=== PATIENT | female | born 1950 | race Caucasian/White ===

== ENCOUNTER 2018-08-02 12:37 | Outpatient (CLI) | payer MEDICARE, BC ==
--- NOTE | 2018-08-02 16:40 | Ultrasound Report ---
Reason: POST MENOPAUSAL VB Procedure Date: 08/02/2018 Accession Number: [id number] / [id number] Procedure: US - Pelvic w/Transvaginal CPT Code: FULL RESULT: EXAM: PELVIC ULTRASOUND EXAM DATE: 08/02/2018 01:58 PM. CLINICAL HISTORY: Postmenopausal vaginal bleeding. Post hormone therapy. COMPARISON: None. TECHNIQUE: Realtime transabdominal pelvic scan performed to identify the uterus and adnexa and as an overview of other pelvic structures, followed by transvaginal scan to provide greater detail of the uterus and adnexa, with static image documentation. FINDINGS: Uterus: 9.1 x 5.1 x 4.1 cm, volume 99 cc. Anteverted position. Normal overall size and echotexture. Masses: None. Endometrium: 7.2 mm. The endometrium is abnormally thickened and echogenic, not compatible with normal postmenopausal state. Cervix: Nabothian cysts. Right Ovary: 2.5 x 1.6 x 2.1 cm, volume 6.1 cc. Normal echotexture and blood flow. Left Ovary: 2.1 x 0.9 x 1.5 cm, volume 2.8 cc. Normal echotexture and blood flow. Free Fluid: None. Other: None. IMPRESSION: Abnormally thick endometrium. RADIA
== END 2018-08-02 12:38 | disposition home or self-care (01) ==
LOC: EDSEX → DI 12:37
PROVIDERS: ATTEND Family Medicine
DX: R93.89 Abnormal findings on diagnostic imaging of other specified body structures (principal); N95.0 Postmenopausal bleeding
CPT/HCPCS: 76830; 76856

== ENCOUNTER 2019-01-17 07:05 | Outpatient (CLI) | payer MEDICARE, OTHER ==
[2019-01-17 10:52] LABS: FREE T3 3.13 pg/mL (2.5-3.9)
[2019-01-17 10:53] LABS: THYROID STIMULATING HORMONE 0.18 uIU/mL (0.34-5.60)
[2019-01-17 10:55] LABS: FREE T4 (FREE THYROXINE) 0.9 ng/dL (0.58-1.64)
[2019-01-17 11:00] LABS: TOTAL T3 0.58 ng/mL (0.87-1.78)
[2019-01-18 07:05] LABS: PROGESTERONE 11.6 ng/mL
== END 2019-01-17 07:06 | disposition home or self-care (01) ==
LOC: LAB.F 07:05
PROVIDERS: ATTEND Family Medicine
DX: N95.1 Menopausal and female climacteric states (principal); R94.6 Abnormal results of thyroid function studies; Z79.890 Hormone replacement therapy; E55.9 Vitamin D deficiency, unspecified
CPT/HCPCS: 36415; 82306; 82626; 82627; 82670; 84144; 84403; 84439; 84443; 84480; 84481; 84482

== ENCOUNTER 2019-04-16 07:42 | Outpatient (CLI) | payer MEDICARE, OTHER ==
[2019-04-16 11:45] LABS: BASOPHILS % (AUTO) 0.7 %; EOSINOPHILS # (AUTO) 0.2 10^3/uL (0.0-0.7); EOSINOPHILS % (AUTO) 4.2 %; HGB - HEMOGLOBIN 14.6 g/dL (12.0-16.0); LYMPHOCYTES # (AUTO) 1.2 10^3/uL (1.5-3.5); LYMPHOCYTES % (AUTO) 28.4 %; MEAN CORPUSCULAR HEMOGLOBIN 32.4 pg (27.0-31.0); MEAN CORPUSCULAR HGB CONC 33.7 g/dL (32.0-36.0); MEAN CORPUSCULAR VOLUME 96.2 fL (81.0-99.0); MEAN PLATELET VOLUME 9.5 fL (7.9-10.8); MONOCYTES # (AUTO) 0.5 10^3/uL (0.0-1.0); MONOCYTES % (AUTO) 10.5 %; NEUTROPHILS # (AUTO) 2.4 10^3/uL (1.5-6.6); NEUTROPHILS % (AUTO) 55.7 %; PLT - PLATELET COUNT 238 10^3/uL (130-450); RED CELL DISTRIBUTION WIDTH 13.7 % (12.0-15.0); WHITE BLOOD COUNT 4.3 x10^3/uL (4.8-10.8)
[2019-04-16 11:57] LABS: ALBUMIN/GLOBULIN RATIO 1.6 (1.0-2.2); BILIRUBIN,TOTAL 2.5 mg/dL (0.2-1.0); CALCIUM 9.1 mg/dL (8.5-10.3); CREATININE 0.5 mg/dL (0.4-1.0); TOTAL PROTEIN 6.5 g/dL (6.7-8.2)
[2019-04-16 12:09] LABS: THYROID STIMULATING HORMONE 0.42 uIU/mL (0.34-5.60)
[2019-04-16 12:11] LABS: FREE T4 (FREE THYROXINE) 0.87 ng/dL (0.58-1.64)
[2019-04-16 12:16] LABS: TOTAL T3 0.78 ng/mL (0.87-1.78)
[2019-04-16 12:43] LABS: HEMOGLOBIN A1C 0.5 g/dL; HEMOGLOBIN A1C % 5.2 % (4.6-6.2)
== END 2019-04-16 07:43 | disposition home or self-care (01) ==
LOC: LAB.S 07:42
PROVIDERS: ATTEND Family Medicine
DX: Z00.00 Encounter for general adult medical examination without abnormal findings (principal); R73.09 Other abnormal glucose; R53.83 Other fatigue
CPT/HCPCS: 36415; 80053; 80061; 82626; 82728; 83036; 83721; 84439; 84443; 84480; 84481; 85025

== ENCOUNTER 2019-05-22 15:29 | Outpatient (CLI) | payer MEDICARE, OTHER ==
--- NOTE | 2019-05-24 16:09 | DEXA Report ---
Reason: POST MENOPAUSAL, HX OF OSTEOPENIA Procedure Date: 05/22/2019 Accession Number: [id number] / [id number] Procedure: DEX - Dexa Spine and/or Hip CPT Code: Final Report FULL RESULT: EXAM: Dexa Spine and/or Hip DATE: 05/22/2019 3:15 PM CLINICAL HISTORY: POST MENOPAUSAL, HX OF OSTEOPENIA TECHNIQUE: Dual energy x-ray absorptiometry (DXA) was performed on a [employer]. Regions measured are the AP Spine, femoral neck, and if needed forearm. COMPARISON: None. In accordance with the International Society for Clinical Densitometry (ISCD) guidelines, data from previous exams may be reanalyzed using current recommendations and techniques. This is done to allow a more accurate basis for comparison with the current study. FINDINGS: The data for the lumbar spine is as follows: BMD (g/cm/cm) T-SCORE Z-SCORE REGION L1 1.034 -0.8 0.9 L2 1.088 -0.9 0.7 L3 1.133 -0.6 1.1 L4 1.240 0.3 2.0 TOTAL 1.128 -0.4 1.3 NOTE: All evaluable vertebrae are used for classification The data for the hip is as follows: BMD (g/cm/cm) T-SCORE Z-SCORE REGION Neck 0.692 -2.5 -0.8 TOTAL 0.704 -2.4 -0.9 NOTE: The femoral neck or total proximal femur, whichever is lowest, is used for classification. IMPRESSION: THE WHO CLASSIFICATION BASED ON THE INTERNATIONAL REFERENCE STANDARD IS OSTEOPOROSIS, REFERENCE LEFT FEMORAL NECK. THE FRACTURE RISK IS HIGH. RECOMMENDATION: Patients with diagnosis of osteoporosis or osteopenia should have regular bone mineral density assessment. For those eligible for Medicare, routine testing is allowed once every 2 years. Testing frequency can be increased for patients who have rapidly progressing disease or for those who are receiving medical therapy to restore bone mass. COMMENT: World Health Organization (WHO) definitions for osteoporosis and osteopenia: NORMAL BMD: T-score at -1.0 or higher, fracture risk is low OSTEOPENIA BMD: T-score between -1.0 and -2.5, fracture risk is increased. OSTEOPOROSIS BMD: T-score at -2.5 or lower, fracture risk is high. National Osteoporosis Foundation recommends: 1. Obtain adequate dietary calcium (at least 1200 mg per day) and vitamin D (400-800 international units per day). 2. Participate, as appropriate, in regular weightbearing and muscle-strengthening exercise. 3. Avoid tobacco use and reduce alcohol and caffeine intake. 4. For more detailed information see the website at www.NOF.org.
== END 2019-05-22 15:30 | disposition home or self-care (01) ==
LOC: DI 15:29
PROVIDERS: ATTEND Family Medicine
DX: M81.0 Age-related osteoporosis without current pathological fracture (principal)
CPT/HCPCS: 77080

== ENCOUNTER 2019-05-22 15:41 | Outpatient (CLI) | payer MEDICARE, OTHER ==
--- NOTE | 2019-05-31 08:24 | Mammography Report ---
Reason: SCREENING MAMMO Procedure Date: 05/22/2019 Accession Number: [id number] / [id number] Procedure: ALEJANDRO - Screening Mammo w/Prakash CPT Code: Final Report FULL RESULT: EXAM: Screening Mammo w/Prakash DATE: 05/22/2019 4:04 PM CLINICAL HISTORY: Screening encounter. Family history of breast cancer in a sister at the age of 68. History of prior breast augmentation. TECHNIQUE: (B) - Bilateral CC, laterally exaggerated CC, MLO views were obtained. COMPARISON: None PARENCHYMAL PATTERN: (D) - The breast(s) demonstrate(s) heterogeneously dense fibroglandular parenchyma. FINDINGS: Postsurgical changes most consistent with prior breast augmentation and subsequent reversal are noted. Rim-like hyperdensity presumably calcifications outlining the previous implant site seen on the right MLO view is not well visualized, possible prior implant loss of integrity. No definite separate hyperdensities or hyperdense lymph nodes to suggest separate silicone granulomata. There are no suspicious masses, calcifications, or areas of distortion. IMPRESSION: Benign findings. BI-RADS category 2. RECOMMENDATION: (ANNUAL) - Recommend routine annual screening mammography. BI-RADS CATEGORY: (2) - Benign Findings. STANDARD QUALIFYING STATEMENTS: 1. This examination was not reviewed with the aid of Computer-Aided Detection (CAD). 2. A negative or benign imaging report should not preclude biopsy if clinically suspicious findings are present. 3. Dense breasts may obscure an underlying neoplasm. 4. This examination was reviewed with the aid of 3D breast imaging (tomosynthesis).
== END 2019-05-22 15:42 | disposition home or self-care (01) ==
LOC: DI 15:41
PROVIDERS: ATTEND Family Medicine
DX: Z12.31 Encounter for screening mammogram for malignant neoplasm of breast (principal); Z80.3 Family history of malignant neoplasm of breast
CPT/HCPCS: 77063; 77067

== ENCOUNTER 2019-06-05 07:59 | Day surgery (SDC) | payer MEDICARE, OTHER ==
[2019-06-05] MEDS ORDERED: fentaNYL 250 MCG/5 ML VIAL IVP ONE (08:00)
[2019-06-05] MEDS ORDERED: MIDAZOLAM 2 MG/2 ML VIAL IVP ONE (08:00)
[2019-06-05] MEDS ORDERED: LACTATED RINGERS 1,000 ML IV ONE (08:13)
[2019-06-05 11:41] VITALS: BP 97/59
== END 2019-06-05 08:00 | disposition home or self-care (01) ==
LOC: SDS 07:59
PROVIDERS: ATTEND Surgery
PROC: 0DJD8ZZ Inspection of Lower Intestinal Tract, Via Natural or Artificial Opening Endoscopic (ICD-10-PCS; principal; 2019-06-05 09:30)
DX: Z12.11 Encounter for screening for malignant neoplasm of colon (principal); Z86.010 Personal history of colon polyps; K57.30 Diverticulosis of large intestine without perforation or abscess without bleeding; E03.9 Hypothyroidism, unspecified
CPT/HCPCS: G0105; J3010; J7120

== ENCOUNTER 2019-07-09 07:39 | Outpatient (CLI) | payer MEDICARE, OTHER ==
[2019-07-09 10:45] LABS: THYROID STIMULATING HORMONE 0.61 uIU/mL (0.34-5.60)
[2019-07-09 10:49] LABS: FREE T4 (FREE THYROXINE) 0.87 ng/dL (0.58-1.64)
== END 2019-07-09 07:40 | disposition home or self-care (01) ==
LOC: LAB.S 07:39
PROVIDERS: ATTEND Family Medicine
DX: D64.9 Anemia, unspecified (principal); R53.83 Other fatigue; R94.6 Abnormal results of thyroid function studies; E55.9 Vitamin D deficiency, unspecified; N95.1 Menopausal and female climacteric states; E27.40 Unspecified adrenocortical insufficiency; Z79.890 Hormone replacement therapy
CPT/HCPCS: 36415; 81599; 82306; 82533; 82626; 82627; 82670; 82728; 84144; 84402; 84403; 84439; 84443; 84481

== ENCOUNTER 2020-03-06 07:07 | Outpatient (CLI) | payer MEDICARE, OTHER ==
[2020-03-06 15:12] LABS: BASOPHILS % (AUTO) 0.4 %; EOSINOPHILS # (AUTO) 0.2 10^3/uL (0.0-0.7); EOSINOPHILS % (AUTO) 3.5 %; HGB - HEMOGLOBIN 14.9 g/dL (12.0-16.0); LYMPHOCYTES # (AUTO) 1.2 10^3/uL (1.5-3.5); LYMPHOCYTES % (AUTO) 25.3 %; MEAN CORPUSCULAR HEMOGLOBIN 33.5 pg (27.0-31.0); MEAN CORPUSCULAR HGB CONC 33.4 g/dL (32.0-36.0); MEAN CORPUSCULAR VOLUME 100.2 fL (81.0-99.0); MEAN PLATELET VOLUME 9.9 fL (7.9-10.8); MONOCYTES # (AUTO) 0.4 10^3/uL (0.0-1.0); MONOCYTES % (AUTO) 7.9 %; NEUTROPHILS # (AUTO) 2.9 10^3/uL (1.5-6.6); NEUTROPHILS % (AUTO) 62.7 %; PLT - PLATELET COUNT 231 10^3/uL (130-450); RED BLOOD COUNT 4.45 10^6/uL (4.20-5.40); RED CELL DISTRIBUTION WIDTH 13.2 % (12.0-15.0); WHITE BLOOD COUNT 4.6 x10^3/uL (4.8-10.8)
[2020-03-06 15:54] LABS: THYROID STIMULATING HORMONE 0.84 uIU/mL (0.34-5.60)
[2020-03-06 15:55] LABS: FREE T3 2.6 pg/mL (2.5-3.9); FREE T4 (FREE THYROXINE) 0.85 ng/dL (0.58-1.64)
[2020-03-06 15:59] LABS: TOTAL T3 0.63 ng/mL (0.87-1.78)
[2020-03-06 16:00] LABS: FERRITIN 155.3 ng/mL (11.0-306.8)
[2020-03-06 16:06] LABS: HB2 TOTAL 15.3 g/dL; HEMOGLOBIN A1C 0.5 g/dL; HEMOGLOBIN A1C % 5.1 % (4.6-6.2)
[2020-03-06 16:29] LABS: ALBUMIN 4.2 g/dL (3.2-5.5); ALBUMIN/GLOBULIN RATIO 1.6 (1.0-2.2); CALCIUM 9.2 mg/dL (8.5-10.3); CREATININE 0.5 mg/dL (0.4-1.0); CRP HIGH SENSITIVITY 0.6 mg/L; TOTAL PROTEIN 6.8 g/dL (6.7-8.2)
[2020-03-07 08:49] LABS: PROGESTERONE 8.1 ng/mL
[2020-03-07 11:13] LABS: HOMOCYSTEINE 5.8 umol/L (<10.4)
== END 2020-03-06 07:08 | disposition home or self-care (01) ==
LOC: LAB.S 07:07
PROVIDERS: ATTEND Internal Medicine
DX: R94.6 Abnormal results of thyroid function studies (principal); E55.9 Vitamin D deficiency, unspecified; N95.1 Menopausal and female climacteric states; Z79.890 Hormone replacement therapy; E03.9 Hypothyroidism, unspecified; R53.83 Other fatigue; D64.9 Anemia, unspecified; R73.09 Other abnormal glucose; E78.01 Familial hypercholesterolemia; E72.11 Homocystinuria
CPT/HCPCS: 36415; 80053; 81599; 82306; 82626; 82627; 82670; 82728; 83036; 83090; 84144; 84402; 84403; 84439; 84443; 84480; 84481; 84482; 85025; 86141

== ENCOUNTER 2021-08-23 07:22 | Outpatient (CLI) | payer MEDICARE, OTHER ==
[2021-08-23 15:08] LABS: BASOPHILS % (AUTO) 0.5 %; EOSINOPHILS # (AUTO) 0.2 10^3/uL (0.0-0.7); EOSINOPHILS % (AUTO) 4.7 %; HCT - HEMATOCRIT 45.5 % (37.0-47.0); HGB - HEMOGLOBIN 15.3 g/dL (12.0-16.0); LYMPHOCYTES # (AUTO) 1.2 10^3/uL (1.5-3.5); LYMPHOCYTES % (AUTO) 28.4 %; MEAN CORPUSCULAR HEMOGLOBIN 33.5 pg (27.0-31.0); MEAN CORPUSCULAR HGB CONC 33.6 g/dL (32.0-36.0); MEAN CORPUSCULAR VOLUME 99.6 fL (81.0-99.0); MEAN PLATELET VOLUME 9.7 fL (7.9-10.8); MONOCYTES # (AUTO) 0.4 10^3/uL (0.0-1.0); NEUTROPHILS # (AUTO) 2.4 10^3/uL (1.5-6.6); NEUTROPHILS % (AUTO) 56.2 %; PLT - PLATELET COUNT 240 10^3/uL (130-450); RED BLOOD COUNT 4.57 10^6/uL (4.20-5.40); RED CELL DISTRIBUTION WIDTH 13.1 % (12.0-15.0); WHITE BLOOD COUNT 4.2 x10^3/uL (4.8-10.8)
[2021-08-23 15:52] LABS: ALBUMIN 3.9 g/dL (3.2-5.5); ALBUMIN/GLOBULIN RATIO 1.4 (1.0-2.2); ALKALINE PHOSPHATASE 42 IU/L (42-121); ALT ALANINE AMINOTRANSFERASE 22 IU/L (10-60); AST ASPARTATE AMINOTRANSFERASE 20 IU/L (10-42); BILIRUBIN,DIRECT 0.2 mg/dL (0.1-0.5); BILIRUBIN,TOTAL 1.8 mg/dL (0.2-1.0); BUN - BLOOD UREA NITROGEN 23 mg/dL (6-20); CALCIUM 9.1 mg/dL (8.5-10.3); CARBON DIOXIDE - CO2 26 mmol/L (21-32); CHLORIDE 105 mmol/L (101-111); CHOL/HDL RATIO 2.3 (<4.4); CHOLESTEROL 185 mg/dL; CREATININE 0.5 mg/dL (0.4-1.0); CRP HIGH SENSITIVITY 0.6 mg/L; GFR - MDRD 121 (>89); GLUCOSE 107 mg/dL (70-100); HDL CHOLESTEROL 82 mg/dL; LDL CHOLESTEROL,CALCULATED 94 mg/dL; LDL/HDL RATIO 1.1 (<4.4); POTASSIUM 3.9 mmol/L (3.5-5.0); SODIUM 137 mmol/L (135-145); THYROID STIMULATING HORMONE 0.63 uIU/mL (0.34-5.60); TOTAL PROTEIN 6.6 g/dL (6.7-8.2); TRIGLYCERIDES 47 mg/dL; VLDL CHOLESTEROL 9 mg/dL
[2021-08-23 15:54] LABS: FREE T3 2.77 pg/mL (2.5-3.9); FREE T4 (FREE THYROXINE) 0.96 ng/dL (0.58-1.64)
[2021-08-23 18:58] LABS: ESTIMATED AVERAGE GLUCOSE 100 mg/dL (70-100); HEMOGLOBIN A1c% 5.1 % (4.27-6.07)
[2021-08-24 04:42] LABS: PROGESTERONE 8.3 ng/mL
[2021-08-24 10:16] LABS: HOMOCYSTEINE 7.2 umol/L (<10.4)
== END 2021-08-23 07:23 | disposition home or self-care (01) ==
LOC: LAB.S 07:22
PROVIDERS: ATTEND Family Medicine
DX: E03.9 Hypothyroidism, unspecified (principal); E78.5 Hyperlipidemia, unspecified; R53.83 Other fatigue; R73.09 Other abnormal glucose; E55.9 Vitamin D deficiency, unspecified; N95.1 Menopausal and female climacteric states
CPT/HCPCS: 36415; 80053; 80061; 82248; 82306; 82626; 82670; 83036; 83090; 83721; 84144; 84439; 84443; 84480; 84481; 84482; 85025; 86141

== ENCOUNTER 2022-05-03 15:11 | Outpatient (CLI) | payer MEDICARE, OTHER ==
[2022-05-03 15:30] LABS: CREATININE 0.6 mg/dL (0.4-1.0)
== END 2022-05-03 15:12 | disposition home or self-care (01) ==
LOC: LAB 15:11
PROVIDERS: ATTEND Otolaryngology
DX: H90.42 Sensorineural hearing loss, unilateral, left ear, with unrestricted hearing on the contralateral side (principal)
CPT/HCPCS: 36415; 82565

== ENCOUNTER 2023-02-03 07:05 | Outpatient (CLI) | payer MEDICARE, OTHER ==
[2023-02-03 14:28] LABS: BASOPHILS % (AUTO) 0.6 %; EOSINOPHILS # (AUTO) 0.1 10^3/uL (0.0-0.7); EOSINOPHILS % (AUTO) 2.5 %; HCT - HEMATOCRIT 44.8 % (37.0-47.0); HGB - HEMOGLOBIN 14.9 g/dL (12.0-16.0); LYMPHOCYTES # (AUTO) 0.9 10^3/uL (1.5-3.5); LYMPHOCYTES % (AUTO) 18.2 %; MEAN CORPUSCULAR HEMOGLOBIN 32.9 pg (27.0-31.0); MEAN CORPUSCULAR HGB CONC 33.3 g/dL (32.0-36.0); MEAN CORPUSCULAR VOLUME 98.9 fL (81.0-99.0); MEAN PLATELET VOLUME 9.5 fL (7.9-10.8); MONOCYTES # (AUTO) 0.4 10^3/uL (0.0-1.0); MONOCYTES % (AUTO) 8.4 %; NEUTROPHILS # (AUTO) 3.4 10^3/uL (1.5-6.6); NEUTROPHILS % (AUTO) 70.1 %; PLT - PLATELET COUNT 219 10^3/uL (130-450); RED BLOOD COUNT 4.53 10^6/uL (4.20-5.40); RED CELL DISTRIBUTION WIDTH 13.6 % (12.0-15.0); WHITE BLOOD COUNT 4.8 x10^3/uL (4.8-10.8)
[2023-02-03 15:00] LABS: ALBUMIN/GLOBULIN RATIO 1.5 (1.0-2.2); ALKALINE PHOSPHATASE 59 IU/L (42-121); ALT ALANINE AMINOTRANSFERASE 27 IU/L (10-60); AST ASPARTATE AMINOTRANSFERASE 24 IU/L (10-42); BUN - BLOOD UREA NITROGEN 19 mg/dL (6-20); CALCIUM 9.3 mg/dL (8.5-10.3); CARBON DIOXIDE - CO2 29 mmol/L (21-32); CHLORIDE 104 mmol/L (101-111); CHOL/HDL RATIO 2.4 (<4.4); CHOLESTEROL 213 mg/dL; CREATININE 0.6 mg/dL (0.4-1.0); GFR - MDRD 98 (>89); GLUCOSE 97 mg/dL (70-100); HDL CHOLESTEROL 87 mg/dL; LDL CHOLESTEROL,CALCULATED 116 mg/dL; LDL/HDL RATIO 1.3 (<4.4); POTASSIUM 4.2 mmol/L (3.5-5.0); SODIUM 139 mmol/L (135-145); TOTAL PROTEIN 6.7 g/dL (6.7-8.2); TRIGLYCERIDES 52 mg/dL; VLDL CHOLESTEROL 10 mg/dL
== END 2023-02-03 07:06 | disposition home or self-care (01) ==
LOC: LAB.S 07:05
PROVIDERS: ATTEND Internal Medicine
DX: C50.811 Malignant neoplasm of overlapping sites of right female breast (principal); Z17.0 Estrogen receptor positive status [ER+]; Z79.811 Long term (current) use of aromatase inhibitors
CPT/HCPCS: 36415; 80053; 80061; 82306; 83721; 85025

== ENCOUNTER 2023-08-24 07:21 | Outpatient (CLI) | payer MEDICARE, OTHER ==
[2023-08-24 14:53] LABS: BASOPHILS % (AUTO) 0.6 %; EOSINOPHILS # (AUTO) 0.1 10^3/uL (0.0-0.7); EOSINOPHILS % (AUTO) 2.6 %; HGB - HEMOGLOBIN 14.2 g/dL (12.0-16.0); LYMPHOCYTES # (AUTO) 0.9 10^3/uL (1.5-3.5); LYMPHOCYTES % (AUTO) 26.5 %; MEAN CORPUSCULAR HEMOGLOBIN 32.9 pg (27.0-31.0); MEAN CORPUSCULAR HGB CONC 32.3 g/dL (32.0-36.0); MEAN CORPUSCULAR VOLUME 102.1 fL (81.0-99.0); MEAN PLATELET VOLUME 9.9 fL (7.9-10.8); MONOCYTES # (AUTO) 0.3 10^3/uL (0.0-1.0); MONOCYTES % (AUTO) 8.3 %; NEUTROPHILS # (AUTO) 2.2 10^3/uL (1.5-6.6); NEUTROPHILS % (AUTO) 61.7 %; PLT - PLATELET COUNT 232 10^3/uL (130-450); RED BLOOD COUNT 4.31 10^6/uL (4.20-5.40); RED CELL DISTRIBUTION WIDTH 13.4 % (12.0-15.0); WHITE BLOOD COUNT 3.5 x10^3/uL (4.8-10.8)
[2023-08-24 16:02] LABS: THYROID STIMULATING HORMONE 2.29 uIU/mL (0.34-5.60)
[2023-08-24 16:08] LABS: FERRITIN 144.6 ng/mL (11.0-306.8)
[2023-08-24 16:56] LABS: % IRON SATURATION 53 % (20-50); ALBUMIN/GLOBULIN RATIO 1.7 (1.0-2.2); ALKALINE PHOSPHATASE 62 IU/L (42-121); ALT ALANINE AMINOTRANSFERASE 16 IU/L (10-60); AST ASPARTATE AMINOTRANSFERASE 19 IU/L (10-42); BILIRUBIN,DIRECT 0.34 mg/dL (0.03-0.18); BILIRUBIN,TOTAL 1.7 mg/dL (0.2-1.0); BUN - BLOOD UREA NITROGEN 16 mg/dL (6-20); CALCIUM 9.2 mg/dL (8.5-10.3); CARBON DIOXIDE - CO2 29 mmol/L (21-32); CHLORIDE 104 mmol/L (101-111); CHOLESTEROL 138 mg/dL; CREATININE 0.6 mg/dL (0.6-1.3); CRP HIGH SENSITIVITY 0.33 mg/L; GFR - MDRD 98 (>89); GLUCOSE 91 mg/dL (74-104); HDL CHOLESTEROL 70 mg/dL; IRON 131 ug/dL (50-212); LDL CHOLESTEROL,CALCULATED 54 mg/dL; LDL/HDL RATIO 0.8 (<4.4); POTASSIUM 4.1 mmol/L (3.5-4.5); SODIUM 140 mmol/L (135-145); TOTAL IRON BINDING CAPACITY 249 ug/dL (250-450); TOTAL PROTEIN 6.4 g/dL (6.4-8.9); TRANSFERRIN 178 mg/dL (203-362); TRIGLYCERIDES 71 mg/dL (48-352); VLDL CHOLESTEROL 14 mg/dL
[2023-08-24 20:09] LABS: ESTIMATED AVERAGE GLUCOSE 100 mg/dL (70-100); HEMOGLOBIN A1c% 5.1 % (4.27-6.07)
[2023-08-25 04:10] LABS: VITAMIN D 25-HYDROXY 88.5 ng/mL (30.0-100.0)
== END 2023-08-24 07:22 | disposition home or self-care (01) ==
LOC: LAB.S 07:21
PROVIDERS: ATTEND Family Medicine
DX: E03.9 Hypothyroidism, unspecified (principal); R53.83 Other fatigue; D64.9 Anemia, unspecified; E55.9 Vitamin D deficiency, unspecified; R73.09 Other abnormal glucose; E78.5 Hyperlipidemia, unspecified
CPT/HCPCS: 36415; 80053; 80061; 82248; 82306; 82626; 82728; 83036; 83090; 83540; 83721; 84439; 84443; 84466; 84480; 84481; 84482; 85025; 86141

== ENCOUNTER 2024-01-19 07:11 | Outpatient (CLI) | payer MEDICARE, OTHER ==
[2024-01-19 14:50] LABS: BASOPHILS % (AUTO) 0.8 %; EOSINOPHILS # (AUTO) 0.1 10^3/uL (0.0-0.7); EOSINOPHILS % (AUTO) 2.6 %; HCT - HEMATOCRIT 43.4 % (37.0-47.0); HGB - HEMOGLOBIN 13.8 g/dL (12.0-16.0); LYMPHOCYTES # (AUTO) 1.1 10^3/uL (1.5-3.5); LYMPHOCYTES % (AUTO) 28.4 %; MEAN CORPUSCULAR HEMOGLOBIN 32.3 pg (27.0-31.0); MEAN CORPUSCULAR HGB CONC 31.8 g/dL (32.0-36.0); MEAN CORPUSCULAR VOLUME 101.6 fL (81.0-99.0); MEAN PLATELET VOLUME 10.1 fL (7.9-10.8); MONOCYTES # (AUTO) 0.4 10^3/uL (0.0-1.0); MONOCYTES % (AUTO) 9.5 %; NEUTROPHILS # (AUTO) 2.3 10^3/uL (1.5-6.6); NEUTROPHILS % (AUTO) 58.4 %; PLT - PLATELET COUNT 231 10^3/uL (130-450); RED BLOOD COUNT 4.27 10^6/uL (4.20-5.40); RED CELL DISTRIBUTION WIDTH 13.3 % (12.0-15.0); WHITE BLOOD COUNT 3.9 x10^3/uL (4.8-10.8)
[2024-01-19 15:32] LABS: ALBUMIN/GLOBULIN RATIO 1.7 (1.0-2.2); BILIRUBIN,DIRECT 0.24 mg/dL (0.03-0.18); BILIRUBIN,TOTAL 1.1 mg/dL (0.2-1.0); CALCIUM 9.1 mg/dL (8.5-10.3); CREATININE 0.7 mg/dL (0.6-1.3); CRP HIGH SENSITIVITY 0.27 mg/L; POTASSIUM 4.1 mmol/L (3.5-4.5); TOTAL PROTEIN 6.4 g/dL (6.4-8.9)
[2024-01-19 15:42] LABS: THYROID STIMULATING HORMONE 0.33 uIU/mL (0.34-5.60)
[2024-01-19 15:48] LABS: FERRITIN 151.6 ng/mL (11.0-306.8)
[2024-01-19 20:30] LABS: ESTIMATED AVERAGE GLUCOSE 97 mg/dL (70-100)
[2024-01-20 08:09] LABS: VITAMIN D 25-HYDROXY 94.3 ng/mL (30.0-100.0)
== END 2024-01-19 07:12 | disposition home or self-care (01) ==
LOC: LAB.S 07:11
PROVIDERS: ATTEND Family Medicine
DX: E03.9 Hypothyroidism, unspecified (principal); R53.83 Other fatigue; R73.09 Other abnormal glucose; E78.5 Hyperlipidemia, unspecified; R94.5 Abnormal results of liver function studies; D64.9 Anemia, unspecified
CPT/HCPCS: 36415; 80053; 82248; 82306; 82626; 82728; 83036; 83090; 84439; 84443; 84480; 84481; 84482; 85025; 86141

== ENCOUNTER 2024-02-05 16:00 | Outpatient (CLI) | payer MEDICARE, OTHER ==
--- NOTE | 2024-02-05 16:26 | XRAY Report ---
PROCEDURE: Chest 2V INDICATIONS: FALL, CONTUSION TO CHEST, CHEST PAIN TECHNIQUE: 2 views of the chest were acquired. COMPARISON: None. FINDINGS: Surgical changes and devices: Surgical clips project over the right chest wall. Lungs and pleura: No pleural effusions or pneumothorax. Lungs are clear. Mediastinum: Mediastinal contours appear normal. Heart size is normal. Bones and chest wall: No suspicious bony lesions. Overlying soft tissues appear unremarkable. IMPRESSION: No acute cardiopulmonary process. Reviewed by: Aries Peacock MD on 02/05/2024 3:25 PM AKDT Approved by: Aries Peacock MD on 02/05/2024 3:25 PM AKDT Station ID: [id number]
== END 2024-02-05 16:01 | disposition home or self-care (01) ==
LOC: DI.S 16:00
PROVIDERS: ATTEND Family Medicine
DX: S20.219A Contusion of unspecified front wall of thorax, initial encounter (principal); R07.81 Pleurodynia